=== PATIENT | male | born 1950 | race Caucasian/White ===

== ENCOUNTER 2016-11-27 11:35 | Emergency (ER) | payer SELFPAY ==
[2016-11-27 11:43] VITALS: TEMP 98.2; BMI 20.2
[2016-11-27 11:56] LABS: AUTOMATED BASOPHIL 0.8 % (0-2); AUTOMATED EOSINOPHIL 1.4 % (0-5); AUTOMATED LYMPH 12.8 % (17-44); AUTOMATED MONOCYTE 7.7 % (3-10); AUTOMATED NEUTROPHIL 77.3 % (45-76); MPV 6.1 fL (7.4-10.4)
[2016-11-27 12:02] LABS: BLOOD UREA NITROGEN 10 MG/DL (9-20); CALCIUM 9.4 MG/DL (8.4-10.2); CALCULATED OSMOLALITY 258 MOs/Kg (270-290); CHLORIDE 98 mEq/L (98-107); GLUCOSE 115 MG/DL (70-99); SODIUM LEVEL 134 mEq/L (137-146)
--- NOTE | 2016-11-27 13:51 | DIRPT ---
CLINICAL DATA: Severe wound on the right ear. Ear pain. EXAM: CT HEAD WITHOUT CONTRAST TECHNIQUE: Contiguous axial images were obtained from the base of the skull through the vertex without intravenous contrast. COMPARISON: None. FINDINGS: There is no evidence of mass effect, midline shift or extra-axial fluid collections. There is no evidence of a space-occupying lesion or intracranial hemorrhage. There is no evidence of a cortical-based area of acute infarction. The ventricles and sulci are appropriate for the patient's age. The basal cisterns are patent. Visualized portions of the orbits are unremarkable. The visualized portions of the paranasal sinuses and mastoid air cells are unremarkable. There is severe soft tissue swelling she each involving the right year extending into the external auditory canal most concerning for otitis externa. Small amount of fluid in the right middle ear. The osseous structures are unremarkable. IMPRESSION: 1. No acute intracranial pathology. 2. Right otitis externa with possible mild otitis media. No bone destruction or fluid in the mastoid sinuses. Electronically Signed By: Ewa Dawkins On: 11/27/2016 13:49
--- NOTE | 2016-11-27 13:55 | EDPRACDOC ---
- General Information Chief Complaint: Wound Stated Complaint: MEDICAL EVAL Time Seen by Provider: 11/27/16 13:09 Information Source: Patient Home Medications: Home Medications Ciprofloxacin HCl/Dexameth [Ciprodex Otic Suspension] 4 drop AD BID #7 days Allergies/Adverse Reactions: Allergies Allergy/AdvReac Type Severity Reaction Status Date / Time Penicillins Allergy Unknown Verified 11/27/16 11:43 - History of Present Illness Onset: YEARS HPI: PT PRESENTS TODAY WITH EROSION AND DISCHARGE OF THE RIGHT EAR X YEARS. STATES THAT HE "DECIDED TO GET IT TAKEN CARE OF AND 'NEEDS TO GET IN THE SYSTEM SO HE CAN BE REFERRED TO ONCOLOGY'". DENIES FEVER, PAYNE, DIZZINESS, HEARING LOSS. Location: right ear Context: Reports: Spontaneous Onset Recently Treated Ear Infection: Reports: No Pain Severity: Reports: None Associated Signs & Symptoms: Reports: Discharge ED Past Medical History - History Reviewed Yes Nurses notes reviewed and agree except as marked - Patient Medical History Psychological History: Denies: Depression - Social Medical History Smoking Status: Heavy tobacco smoker (5 or more cigarettes/day or daily pipe/ cigar) EDM Review of Systems - Review of Systems ROS Negative Except as Marked: Yes All systems reviewed and were negative except as marked Constitutional: No Symptoms Reported Eyes: No Symptoms Reported Ears: Drainage, Other Throat: No Symptoms Reported Nose: No Symptoms Reported Respiratory: No Symptoms Reported Cardiovascular: No Symptoms Reported Gastrointestinal: No Symptoms Reported Neurological: No Symptoms Reported Musculoskeletal: No Symptoms Reported Integumentary: Wound - Physical Exam Constitutional: Alert (Awake), No apparent distress Oriented to: Time, Person, Place Last recorded Vital Signs: Last Vital Signs Temp 98.2 F 11/27/16 11:37 Pulse 62 11/27/16 13:35 Resp 18 11/27/16 13:35 BP 166/73 11/27/16 13:35 Pulse Ox 97 11/27/16 13:35 Oxygen Pulse Oxygen Saturation 97 O2 Device Room Air Oxygen Flow Rate Fraction of Inspired Oxygen ( FIO2) - HEENT Head: Normal Eye Exam: Normal Oropharynx: Normal Tympanic Membrane: Obscured ENT EAC: Other (NOTED APPARENT EROSIVE BCC TO RIGHT EAC; HAS TAKEN MOST OF THE BOTTOM HAVE OF THE EXTERNAL EAR AND HAS ALSO ERODED THE TRAGUS AND DEEP DERMAL TISSUE OF THE RIGHT FACE; NOTED PURULENT DRAINAGE FROM EAR CANAL) Nose: No Symptoms Reported Neck: Normal, Denies Pain, Midline - Respiratory/Cardiovascular Respiratory: Normal - CTA Cardiovascular: Normal - GI Palpation: Normal Tenderness: Non tender - Musculoskeletal Back: Normal Extremities: Normal - Integumentary Skin: Normal Lymphatics: Normal - Neurologic Cerebellar: Normal Mood Description: Normal Thought: Coherent Perception: Normal - Results 11/27/16 11:42 11/27/16 11:42 WBC 12.2 xk/uL (3.8-10.8) H 11/27/16 11:42 RBC 5.37 xM/uL (4.70-6.10) 11/27/16 11:42 Hgb 16.6 g/dL (14.0-18.0) 11/27/16 11:42 Hct 48.8 % (42-52) 11/27/16 11:42 MCV 91 fL (80-94) 11/27/16 11:42 MCH 30.9 pg (27-32) 11/27/16 11:42 MCHC 34.0 g/dl (33-36) 11/27/16 11:42 RDW 13.6 % (11.5-14.5) 11/27/16 11:42 Plt Count 452 xk/uL (130-400) H 11/27/16 11:42 MPV 6.1 fL (7.4-10.4) L 11/27/16 11:42 Neut % (Auto) 77.3 % (45-76) H 11/27/16 11:42 Lymph % (Auto) 12.8 % (17-44) L 11/27/16 11:[address] [place] % (Auto) 7.7 % (3-10) 11/27/16 11:42 Eos % (Auto) 1.4 % (0-5) 11/27/16 11:42 Baso % (Auto) 0.8 % (0-2) 11/27/16 11:42 Absolute Neuts (auto) 9.39 xk/uL (1.7-8.2) H 11/27/16 11:42 Absolute Lymphs (auto) 1.46 xk/uL (0.65-4.75) 11/27/16 11:42 Sodium 134 mEq/L (137-146) L 11/27/16 11:42 Potassium 4.5 mEq/L (3.5-5.1) 11/27/16 11:42 Chloride 98 mEq/L (98-107) 11/27/16 11:42 Carbon Dioxide 26 mMOL/L (22-33) 11/27/16 11:42 Anion Gap 15 mEq/L (8-16) 11/27/16 11:42 BUN 10 MG/DL (9-20) 11/27/16 11:42 Creatinine 0.80 MG/DL (0.66-1.25) 11/27/16 11:42 Estimated GFR (MDRD) > 60 mL/min (>=60) 11/27/16 11:42 Glucose 115 MG/DL (70-99) H 11/27/16 11:42 Calculated Osmolality 258 MOs/Kg (270-290) L 11/27/16 11:42 Calcium 9.4 MG/DL (8.4-10.2) 11/27/16 11:42 Total Bilirubin 0.9 MG/DL (0.2-1.3) 11/27/16 11:42 AST 28 IU/L (17-59) 11/27/16 11:42 ALT 33 IU/L (21-72) 11/27/16 11:42 Alkaline Phosphatase 97 IU/L (50-160) 11/27/16 11:42 Total Protein 8.0 G/DL (6.3-8.2) 11/27/16 11:42 Albumin 4.6 G/DL (3.5-5.0) 11/27/16 11:42 Lab Results 11/27/16 11/27/16 11:42 11:42 WBC 12.2 H RBC 5.37 Hgb 16.6 Hct 48.8 MCV 91 MCH 30.9 MCHC 34.0 RDW 13.6 Plt Count 452 H MPV 6.1 L Neut % (Auto) 77.3 H Lymph % (Auto) 12.8 L [place] % (Auto) 7.7 Eos % (Auto) 1.4 Baso % (Auto) 0.8 Absolute Neuts (auto) 9.39 H Absolute Lymphs (auto) 1.46 Sodium 134 L Potassium 4.5 Chloride 98 Carbon Dioxide 26 Anion Gap 15 BUN 10 Creatinine 0.80 Estimated GFR (MDRD) > 60 Glucose 115 H Calculated Osmolality 258 L Calcium 9.4 Total Bilirubin 0.9 AST 28 ALT 33 Alkaline Phosphatase 97 Total Protein 8.0 Albumin 4.6 - Additional Information I EXPLAINED TO PT THAT HE WOULD NEED TO ESTABLISH A PCP FIRST, THEN WOULD BE REFERRED TO ONCOLOGIST OR POSSIBLY DERMATOLOGY. PT STATES THAT HE IS CURRENTLY LIVING ON [facility]URITY AND MAY BE ABLE TO GET FINANCIAL HELP FROM FAMILY, BUT HE IS UNSURE. I STATED HE MIGHT QUALIFY FOR EMERGENCY MEDICAID, BUT I WAS UNSURE OF THIS AND TOLD HIM TO SPEAK WITH THE SOCIAL SECURITY OFFICE. Decision Time to Discharge: 13:53 - Departure Disposition: Home Condition: Good Final Diagnosis: Otitis externa Qualifiers: Otitis externa type: diffuse Laterality: right Chronicity: unspecified Qualified Code(s): H60.311 - Diffuse otitis externa, right ear Instructions: Otitis Externa (ED), Basal Cell Carcinoma (GEN) Education/Counseling Given To: Patient Education/Counseling Given Regarding: Diagnosis, Treatment, Follow Up Referrals: None,No Provider [Primary Care Provider] - One Week ASHLYN GRANT [NonStaff] - One Week Brenton López MD [Staff Physician] - One Week Uriel Gonzales MD [Staff Physician] - One Week Hong Chaidez MD [Ambulatory] - One Week Prescriptions: Ciprofloxacin HCl/Dexameth [Ciprodex Otic Suspension] 4 drop AD BID #7 days Additional Instructions: CLEAN EAR WITH CLEAN WATER. PLEASE ESTABLISH A PCP FOR REFERRALS TO [facility]. [facility] [phone]
[2016-11-27 14:10] VITALS: BP 165/72; PULSE 68
== END 2016-11-27 14:07 | disposition home or self-care (01) ==
LOC: EDMC 11:35
DX: H60.311 Diffuse otitis externa, right ear (principal)
CPT/HCPCS: 36415; 70450; 80053; 85025; 99282